=== PATIENT | female | born 1960 | race Caucasian/White ===

== ENCOUNTER 2016-08-26 18:36 | Emergency (ER) | payer SELFPAY ==
[2016-08-26 18:44] VITALS: BP 141/73; PULSE 93; RESP 18; TEMP 98.5; O2SAT 99
--- NOTE | 2016-08-26 18:56 | ED PDOC ---
Lower Extremity Pain/Injury Time Seen by Provider: 08/26/16 18:45 Chief Complaint (Nursing): Lower Extremity Problem/Injury Chief Complaint (Provider): Atraumatic left foot swelling History Per: Patient History/Exam Limitations: no limitations Onset/Duration Of Symptoms: Days (7 days) Current Symptoms Are (Timing): Still Present Additional Complaint(s): Sasha Bernabe, a 55 year old female, presents to the ED with atraumatic left foot swelling. The patient says she has been experiencing this for one week and it has progressively worsened. Denies numbness, tingling, fever and trauma. Past Medical History Reviewed: Historical Data, Nursing Documentation, Vital Signs Vital Signs: Last Vital Signs Temp 98.5 F 08/26/16 18:43 Pulse 93 H 08/26/16 18:43 Resp 18 08/26/16 18:43 BP 141/73 08/26/16 18:43 Pulse Ox 99 08/26/16 18:43 - Medical History PMH: No Chronic Diseases, HIV, HTN - Surgical History Surgical History: Appendectomy, Cholecystectomy - Family History Family History: States: Unknown Family Hx - Immunization History Hx Tetanus Toxoid Vaccination: No Hx Influenza Vaccination: No Hx Pneumococcal Vaccination: No - Home Medications Home Medications: Ambulatory Orders Medication Instructions Recorded traMADol [Ultram] 50 mg PO Q6H PRN #15 tab 11/18/14 Azithromycin [Z-Michael] 250 mg PO DAILY #6 tab 04/07/16 Naproxen [Naprosyn] 500 mg PO BID PRN #20 tablet 04/07/16 Meloxicam [Mobic] 7.5 mg PO DAILY PRN #30 tab 08/26/16 - Allergies Allergies/Adverse Reactions: Allergies Allergy/AdvReac Type Severity Reaction Status Date / Time No Known Allergies Allergy Verified 08/26/16 18:41 Review of Systems Constitutional: Positive for: Other (Denies numbness; tingling and trauma.). Negative for: Fever Musculoskeletal: Positive for: Other (Left foot swelling) Physical Exam - Reviewed Nursing Documentation Reviewed: Yes Vital Signs Reviewed: Yes - Physical Exam Appears: Positive for: Non-toxic, No Acute Distress Head Exam: Positive for: ATRAUMATIC, NORMOCEPHALIC Extremity: Positive for: Capillary Refill (Capillary refill 2 seconds.), Other ( Plantar surface of the left foot has a small mobile, tender, non fluctuate, non erythematous without skin integrity; Dorsalis Pedalis pulse 2+) Neurologic/Psych: Positive for: Alert, Oriented - ECG O2 Sat by Pulse Oximetry: 99 - Radiology X-Ray: Interpreted by Me (Foot x-ray) X-Ray Interpretation: No Acute Disease Medical Decision Making Medical Decision Makin:45 Initial Impression: 55 year old female presenting with atraumatic left leg pain Initial plan: * Foot left 3 views routine * reevaluation Scribe Attestation: Documented by Lucrecia Chaney, acting as a scribe for Jose Gaines PA-C., MD Scribe Attestation: All medical record entries made by the Scribe were at my direction and personally dictated by me. I have reviewed the chart and agree that the record accurately reflects my personal performance of the history, physical exam, medical decision making, and the department course for this patient. I have also personally directed, reviewed, and agree with the discharge instructions and disposition. Disposition - Clinical Impression Clinical Impression: Villanueva's neuroma - Patient ED Disposition Is Patient to be Admitted: No - Disposition Referrals: Mable Sanchez DPM [Staff Provider] - [facility] [Provider Group] Disposition: Routine/Home Disposition Time: 19:12 Condition: STABLE Additional Instructions: Follow up with Dr. Sanchez, nut culler, for further evaluation. Prescriptions: Meloxicam [Mobic] 7.5 mg PO DAILY PRN #30 tab PRN Reason: Pain, Mild (1-3) Instructions: Villanueva Neuroma (ED) Print Language: RUSSIAN
--- NOTE | 2016-08-26 22:24 | RAD ---
PROCEDURE: Left Foot Radiographs. HISTORY: pain COMPARISON: None available. FINDINGS: BONES: No acute displaced fracture. JOINTS: No dislocation. SOFT TISSUES: Soft tissue swelling. No evidence of radiopaque foreign body. OTHER FINDINGS: None. IMPRESSION: Soft tissue swelling. No acute displaced fracture, dislocation, or significant joint effusion identified. If symptoms persist, or if there is continued clinical concern, x-ray follow-up in 7-10 days should be considered.
== END 2016-08-26 19:33 | disposition home or self-care (01) ==
LOC: H.ER 18:36
DX: G57.62 Lesion of plantar nerve, left lower limb (principal)

== ENCOUNTER 2016-10-18 11:41 | Day surgery (SDC) | payer SELFPAY ==
[2016-10-12 17:42] VITALS: BMI 26.9
[2016-10-18] MEDS ORDERED: Lactated Ringer's 1,000 ML IV ONE (12:15)
[2016-10-18] MEDS ORDERED: Bupivacaine 0.5% 50 ML IJ ONE ×5 (13:02→15:44)
[2016-10-18] MEDS ORDERED: ceFAZolin 1 GM in Sodium Chloride 0.9% 100 ML IVPB ONE (13:02)
[2016-10-18] MEDS ORDERED: Lidocaine 1% Inj (20ml) IJ ONE ×2 (13:02→15:05)
--- NOTE | 2016-10-18 13:09 | CP.PCM.PN ---
Subjective - Date & Time of Evaluation Date of Evaluation: 10/18/16 Time of Evaluation: 13:05 - Subjective Subjective: 55 y/o female with PMHx of HTN seen at bedside in [facility] for painful left foot plantar fibroma surgery. Pt states that she has pain because of the fibroma. Pt states that she has been NPO since 6 pm yesterday. Pt denies of having any adverse reaction to anesthesia. Pt denies of any recent F/N/V/C/SOB. PMHx: HTN PSHx: Hysterectomy, Cholecystectomy, Appendectomy Allergies: N.K.D.A Objective - Vital Signs/Intake and Output Vital Signs (last 24 hours): Temp Pulse Resp BP Pulse Ox 98.3 F 75 20 138/77 99 10/18/16 12:03 10/18/16 12:06 10/18/16 12:03 10/18/16 12:03 10/18/16 12:03 - Medications Medications: Current Medications Bupivacaine HCl (Marcaine 0.5% 50 Ml) 50 ml IJ ONCE ONE Stop: 10/18/16 13:03 Cefazolin Sodium 1 gm/ Sodium (Chloride) 100 mls @ 100 mls/hr IVPB ONCE ONE Stop: 10/18/16 14:01 - Constitutional Appears: Well, Non-toxic, No Acute Distress - Extremities Exam Additional comments: Left foot focused exam: VASC: DP/PT pulses are palpable and 2/4, WIRE COMMUNICATIONS ENGINEER: < 3 sec to all digits, TG: warm to cool from proximal to distal, no pitting or non-pitting edema noted DERM: no interdigital maceration, no open lesions, no clinical suspicion of infection, no erythema NEURO: Protective sensation grossly intact ORTHO: palpable mass on the plantar medial arch of the left foot which is tender to touch - Neurological Exam Neurological Exam: Alert, Awake, Oriented x3 - Psychiatric Exam Psychiatric exam: Normal Affect, Normal Mood Assessment and Plan - Assessment and Plan (Free Text) Assessment: 55 y/o female seen at bedside in [facility] for painful left foot soft tissue removal Plan: Pt was seen and examined in [facility] Pt NPO status was confirmed All Pre-op testing and clearance was in the chart Pt has exhausted all conservative treatment at this time and is opting for surgical intervention Pt was explained procedure and post-operative course All pt's questions were answered to satisfaction No guarantees were made Pt understands all risks, benefits and complications of procedure Pt will follow-up with Dr. Partida
[2016-10-18] MEDS ORDERED: Sodium Chloride 0.9% 1,000 ML IV SCH (13:15)
--- NOTE | 2016-10-18 13:18 | CP.SDSHP ---
Same Day Surgery H & P - History Proposed Procedure: Excision of soft tissue mass on left foot Pre-Op Diagnosis: soft tissue mass on left foot - Allergies Allergies: Allergies No Known Allergies Allergy (Verified 08/26/16 18:41) - Physical Exam Vital Signs: Vital Signs 10/18/16 10/18/16 12:03 12:06 Temperature 98.3 F Pulse Rate 75 75 Respiratory 20 Rate Blood Pressure 138/77 O2 Sat by Pulse 99 Oximetry Mental Status: Alert & Oriented x3 - {Optional Preform as Required} Integument: WNL Ortho: Other - Impression Impression: Pt was seen and examined in [facility]. Pt NPO status was confirmed. All Pre-op testing and clearance was in the chart. Pt has exhausted all conservative treatment at this time and is opting for surgical intervention. Pt was explained procedure and post-operative course. All pt's questions were answered to satisfaction. No guarantees were made. Pt understands all risks, benefits and complications of procedure. Pt will follow-up with Dr. Partida - Date & Time Date: 10/18/16 Time: 13:17 Short Stay Discharge - Short Stay Discharge Admitting Diagnosis/Reason for Visit: M79.9 Disposition: HOME/ ROUTINE Referrals: Yoandy Partida MD [Staff Provider] - Additional Instructions (Diet, Activity): Patient in good/stable condition for discharge home. Pt to resume medications per medical reconciliation. Resume regular diet. Please keep dressing clean, dry, & intact to surgical site, use plastic bag over bandage for showering, wear post op shoe at all times when ambulating, call clinic if you see signs of infection (redness, swelling, malodor), please make an appointment to see Dr. Partida in office/clinic within 1 week for post-op check. Progress Note/Discharge Note with Instructions: - Patient evaluated bedside in recovery s/p surgical procedure. - After surgical procedure patient in NAD - (+) Void, (+) Appetite - Capillary refill time <3s and NVSI intact. - Patient denies complaints at this time - Post operative instructions and plan of care explained to patient at length. - Pt. acknowledges understanding. - Patient stable for DC per podiatric surgery
[2016-10-18] MEDS ORDERED: Lidocaine 1% Inj (20ml) ONE (14:29)
[2016-10-18] MEDS ORDERED: Bupivacaine 0.5% Inj(30mL) ONE (14:29)
[2016-10-18] MEDS ORDERED: Propofol 10 mg/ml Inj (20 ML) ONE ×2 (14:35→14:56)
[2016-10-18] MEDS ORDERED: Midazolam 2 MG/2 ML VIAL ONE (14:36)
--- NOTE | 2016-10-18 15:51 | PCM.SURG1 ---
Surgeon's Initial Post Op Note - Surgeon's Notes Surgeon: Dr. Partida Hydraulic Dredge Operator: Dr. Luis Monreal Type of Anesthesia: IV Sedation Anesthesia Administered By: Dr. Chery Pre-Operative Diagnosis: Left foot soft tissue mass Operative Findings: see dictation. M: 2-0 vicryl, 3-0 prolene Post-Operative Diagnosis: same Operation Performed: Excision of left foot soft tissue mass Specimen/Specimens Removed: Left foot plantar fascial fibroma Estimated Blood Loss: EBL {In ML}: 2 Blood Products Given: N/A Drains Used: No Drains Post-Op Condition: Good Date of Surgery/Procedure: 10/18/16 Time of Surgery/Procedure: 15:51
[2016-10-18] MEDS ORDERED: Oxycodone/Acetaminophen 5/325 mg Tab PO PRN ×2 (15:53)
[2016-10-18] MEDS ORDERED: HYDROmorphone 0.5 mg/0.5 ml ISec IVP PRN (15:54)
[2016-10-18] MEDS ORDERED: Lactated Ringer's 1,000 ML IV SCH (16:00)
[2016-10-18 16:38] VITALS: RESP 18
[2016-10-18 18:28] VITALS: BP 129/79; PULSE 66; TEMP 98; O2SAT 98
--- NOTE | 2016-10-19 11:29 | PCM.OP ---
Operative Report - Operative Report Date of Surgery/Procedure: 10/18/16 Time of Surgery/Procedure: 14:30 Surgeon: Dr. Partida Natural Gas Basis Trader: Dr. Jermaine Krishnamurthy PGY-2; Dr. Shayna Smith PGY-1 Anesthesia/Sedation: IV sedation + local Pre-Operative Diagnosis: painful soft tissue mass left foot Post-Operative Diagnosis: painful soft tissue mass left foot Indication for Surgery: The patient is a 55year-old female pt with the above diagnoses. Of note, patient has had a painful soft tissue growth of the left foot plantar arch for the past 2-3 months.The patient has exhausted conservative treatment at this time and now requests surgical intervention. The patient signed the consent after careful explanation of risks, benefits, complication and alternatives for surgical procedure. No guarantees were given nor implied. 1 gram of ancef IV was given to the pt hour prior to the procedure. NPO status was confirmed prior to taking pt to the OR. Operative Findings: The patient was brought to the operating room and placed on the operating room table in supine position. A well-padded pneumatic ankle tourniquet was placed to the patient's left ankle in a supramalleolar position. After induction of IV sedation, the patient received a total of 20 mL of 1:1 mixture of 0.5% Marcaine and 1% lidocaine plain in local block fashion to the left foot. Once local anesthesia was achieved, the foot was then prepped and draped in usual sterile manner. Esmarch was utilized to exsanguinate the patient's left foot. Pneumatic ankle tourniquet was then inflated to 250 mmHg and procedure began. Attention was then direction to the medial aspect of the plantar arch where a nodular mass was noted measuring approximately 4.0x2.0 cm deep to skin. Using a number #15 blade a curvilinear incision was made directly over the palpable mass measuring 6cm in length. Using blunt dissection, the dissection was continued down to deep subcutaneous tissue layer. It should be noted that care was taken to identify and retract all vital neurovascular structures. All bleeders were cauterized and ligated as. necessary. Upon dissection a nodular denisity within the medial band of the plantar fascia was encountered. Carefully, using blunt dissection, the thickened area of planatar fascia was excised,taking care to preserve the abductor hallucis muscle belly integrity deep to the plantar fascia, and the mass was then passed from the operative field and sent to pathology. The. wound was irrigated with copious amounts of sterile normal saline. The subcutaneous tissue was then reapproximated using a #3-0 Vicryl in a simple stitch manner. The skin edges were then reapproximated using #3-0 prolene in simple stitch and box retention suture technique. Procedure/Operation Description: excision of painful soft tissue mass left foot Estimated Blood Loss: 2 Complications: none Discharge & Condition: The patient tolerated the anesthesia and procedure well and was escorted to the recovery room with vital signs stable and neurovascular status intact to the left foot. This patient will be strictly NWB and will follow up with Dr. Partida in the clinic within 1 week.
== END 2016-10-18 18:43 | disposition home or self-care (01) ==
LOC: H.OPSURG 11:41
PROVIDERS: ATTEND Podiatrist
DX: D21.22 Benign neoplasm of connective and other soft tissue of left lower limb, including hip (principal); I10 Essential (primary) hypertension

== ENCOUNTER 2016-11-11 09:03 | Emergency (ER) | payer OTHER ==
[2016-11-11 09:03] VITALS: BMI 26.9
[2016-11-11 09:13] VITALS: BP 121/66; PULSE 87; RESP 17; TEMP 98.6
[2016-11-11 09:19] VITALS: O2SAT 98
--- NOTE | 2016-11-11 09:27 | ED PDOC ---
Lower Extremity Pain/Injury Time Seen by Provider: 11/11/16 09:16 Chief Complaint (Nursing): Lower Extremity Problem/Injury Chief Complaint (Provider): Foot pain History Per: Patient History/Exam Limitations: no limitations Onset/Duration Of Symptoms: Days (Today) Current Symptoms Are (Timing): Still Present Additional History Per: Patient Additional Complaint(s): Pt. with foot pain in site of surgery since the surgery, but more for 1 week. No numbness, tingles, weakness, calf pain, fever. No dyspnea. Pt. with surgery on bottom of foot. Seen by scraper operator 1 week after sugery and allowed pt. to ambulate. Past Medical History Reviewed: Nursing Documentation, Vital Signs Vital Signs: Last Vital Signs Temp 98.6 F 11/11/16 09:12 Pulse 87 11/11/16 09:12 Resp 17 11/11/16 09:12 BP 121/66 11/11/16 09:12 Pulse Ox 98 11/11/16 09:17 - Medical History PMH: HIV, HTN Denies: Chronic Kidney Disease - Surgical History Surgical History: Appendectomy, Cholecystectomy Other surgeries: foot surgery - Family History Family History: States: Unknown Family Hx - Social History Alcohol: None Drugs: Denies - Immunization History Hx Tetanus Toxoid Vaccination: No Hx Influenza Vaccination: No Hx Pneumococcal Vaccination: No - Home Medications Home Medications: Ambulatory Orders Medication Instructions Recorded Ibuprofen [Motrin Tab] 800 mg PO DAILY PRN 10/12/16 Abacavir/Dolutegravir/Lamivudi 1 tab PO DAILY 10/18/16 [Triumeq Tablet] Cephalexin [Keflex] 500 mg PO TID 10/18/16 Hydrochlorothiazide [Microzide] 25 mg PO DAILY 10/18/16 oxyCODONE/Acetaminophen [Percocet 5 - 325 mg PO Q6 PRN 10/18/16 5/325 mg Tab] Amoxicillin/Clavulanate [Augmentin 1 tab PO BID 7 Days 11/11/16 500 MG-125 MG] - Allergies Allergies/Adverse Reactions: Allergies Allergy/AdvReac Type Severity Reaction Status Date / Time No Known Allergies Allergy Verified 11/11/16 09:16 Review of Systems ROS Statement: Except As Marked, All Systems Reviewed And Found Negative Musculoskeletal: Positive for: Foot Pain Physical Exam - Reviewed Nursing Documentation Reviewed: Yes Vital Signs Reviewed: Yes - Physical Exam Appears: Positive for: Non-toxic, No Acute Distress Head Exam: Positive for: ATRAUMATIC, NORMAL INSPECTION, NORMOCEPHALIC Cardiovascular/Chest: Positive for: Regular Rate, Rhythm Respiratory: Positive for: CNT, Normal Breath Sounds Pulses-Dorsalis Pedis (L): 2+ Pulses-Post. Tibialis (L): 2+ Back: Positive for: Normal Inspection. Negative for: L CVA Tenderness, R CVA Tenderness Extremity: Positive for: Normal ROM, Tenderness (R plantar mid foot with wound tender with ?trace barillas dc. Mild erythema, no fluctuance.). Negative for: Calf Tenderness, Deformity Neurologic/Psych: Positive for: Alert, Oriented - Laboratory Results Result Diagrams: 11/11/16 11:20 11/11/16 11:20 Interpretation Of Abn Labs: no acute - ECG O2 Sat by Pulse Oximetry: 98 Pulse Ox Interpretation: Normal - Progress ED Course And Treament: 1211: Stable. Podiatry saw pt. Wanted blood work and x-rays. They took cx. 1241: Stable. AAOx3. Pain free. Podiatry wrapped foot. Wants pt. to be dc with augmentin. Fu in 1 week. Disposition - Clinical Impression Clinical Impression: Wound infection - Patient ED Disposition Is Patient to be Admitted: No Counseled Patient/Family Regarding: Studies Performed, Diagnosis, Need For Followup, Rx Given - Disposition Referrals: Yoandy Partida MD [Staff Provider] - 11/17/16 Disposition: Routine/Home Disposition Time: 12:42 Condition: STABLE Additional Instructions: Return if not better in 3 days. Prescriptions: Amoxicillin/Clavulanate [Augmentin 500 MG-125 MG] 1 tab PO BID 7 Days Instructions: Wound Infection (ED) Forms: [facility] [facility] (French)
[2016-11-11] MEDS ORDERED: Sodium Chloride 0.9% 500 ML IV STA (09:51)
--- NOTE | 2016-11-11 10:51 | RAD ---
PROCEDURE: Left Foot Radiographs. HISTORY: pain COMPARISON: 08/26/16. FINDINGS: BONES: Normal. No fracture. JOINTS: Normal. SOFT TISSUES: Normal. OTHER FINDINGS: None. IMPRESSION: Normal left foot radiographs.
[2016-11-11 11:36] LABS: BASO % 0.3 % (0.0-2.0); EOS # 0.1 K/uL (0.0-0.7); EOS % 0.7 % (0.0-4.0); HEMOGLOBIN 13.8 g/dL (12.0-16.0); LYMPH # 3.1 K/uL (1.0-4.3); LYMPH % 30.3 % (20.0-40.0); MEAN CELL VOLUME 94.1 fl (81.0-99.0); MEAN CORPUSCULAR HEMOGLOBIN 32.7 pg (27.0-31.0); MEAN CORPUSCULAR HGB CONC 34.8 g/dL (33.0-37.0); MEAN PLATELET VOLUME 9.3 fl (7.2-11.7); MONO # 0.9 K/uL (0.0-0.8); MONO % 8.3 % (0.0-10.0); NEUT # 6.2 K/uL (1.8-7.0); NEUT % 60.4 % (50.0-75.0); NRBC % 0.1 % (0.0-0.0); RBC 4.21 Mil/uL (3.80-5.20); RED CELL DISTRIBUTION WIDTH 12.9 % (11.5-14.5); WHITE BLOOD COUNT 10.3 K/uL (4.8-10.8)
[2016-11-11 11:42] LABS: BLOOD UREA NITROGEN 18 mg/dl (7-17); CALCIUM 9.5 mg/dL (8.4-10.2); GFR AFRICAN-AMERICAN > 60; GFR NON-AFRICAN AMERICAN > 60
--- NOTE | 2016-11-11 15:25 | CP.PCM.CON ---
History of Present Illness - History of Present Illness History of Present Illness: Patient is a 55 year old female with PMHx of HIV and HTN who presents to the ED today complaining of pain on the bottom of her left foot where she had a surgery performed roughly three weeks ago by Dr. Partida to remove a soft tissue mass. Patient states that she has had pain in the area ever since the surgery but that over the last few days her pain has increased greatly. Patient has been applying a cream to the area but can not recall the name of the cream at this time. Patient has also been keeping her dressing C/D/I and has been walking in a surgical shoe as instructed. Patient denies any further pedal complaints at this time. Patient denies N/V/F/C/CP/SOB Review of Systems - Review of Systems Review of Systems: ROS unremarkable outside of HPI Past Patient History - Past Medical History & Family History Past Medical History?: Yes - Past Social History Alcohol: None Drugs: Denies - CARDIAC Hx Hypertension: Yes - PULMONARY Hx Respiratory Disorders: No - NEUROLOGICAL Hx Neurological Disorder: No - HEENT Hx HEENT Problems: No - RENAL Hx Chronic Kidney Disease: No - ENDOCRINE/METABOLIC Hx Endocrine Disorders: No - HEMATOLOGICAL/ONCOLOGICAL Hx Human Immunodeficiency Virus (HIV): Yes - INTEGUMENTARY Hx Dermatological Problems: No - MUSCULOSKELETAL/RHEUMATOLOGICAL Hx Musculoskeletal Disorders: No - GASTROINTESTINAL Hx Gastrointestinal Disorders: No - GENITOURINARY/GYNECOLOGICAL Hx Genitourinary Disorders: No - PSYCHIATRIC Hx Psychophysiologic Disorder: No Hx Substance Use: No - SURGICAL HISTORY Hx Appendectomy: Yes Hx Cholecystectomy: Yes - ANESTHESIA Hx Anesthesia: Yes Hx Anesthesia Reactions: No Hx Malignant Hyperthermia: No Meds Home Medications: Home Medication List Medication Instructions Recorded Confirmed Type Amoxicillin/Clavulanate [Augmentin 1 tab PO BID 7 Days 11/11/16 Rx 500 MG-125 MG] Allergies/Adverse Reactions: Allergies Allergy/AdvReac Type Severity Reaction Status Date / Time No Known Allergies Allergy Verified 11/11/16 09:16 Physical Exam - Constitutional Appears: Well, Non-toxic, No Acute Distress - Extremities Exam Additional comments: LLE focused exam Vasc: DP/PT pulses fully palpable 2/4 b/l. CFT < 3 seconds to digits 1-5 b/l. Skin temperature warm to warm from proximal to distal Neuro: epicritic and protective sensation grossly intact b/l Derm: Incision site noted to plantar aspect of left foot with <1cc purulent drainage noted. Mild erythematous border appreciated and tissue at surgical site is necrotic/fibrotic. No malodor noted at this time. Otherwise no open lesions, wounds, maceration, xerosis, or abnormal pigmentation noted b/l MSK: POP to surgical site - Neurological Exam Neurological exam: Alert, Oriented x3 - Psychiatric Exam Psychiatric exam: Normal Affect, Normal Mood Results - Vital Signs Recent Vital Signs: Last Vital Signs Temp 98.6 F 11/11/16 09:12 Pulse 87 11/11/16 09:12 Resp 17 11/11/16 09:12 BP 121/66 11/11/16 09:12 Pulse Ox 98 11/11/16 12:43 - Labs Result Diagrams: 11/11/16 11:20 11/11/16 11:20 Labs: Laboratory Results - last 24 hr 11/11/16 11/11/16 11:20 11:20 WBC 10.3 RBC 4.21 Hgb 13.8 D Hct 39.6 MCV 94.1 MCH 32.7 H MCHC 34.8 RDW 12.9 Plt Count 254 MPV 9.3 Neut % (Auto) 60.4 Lymph % (Auto) 30.3 Harding % (Auto) 8.3 Eos % (Auto) 0.7 Baso % (Auto) 0.3 Neut # 6.2 Lymph # 3.1 Harding # 0.9 H Eos # 0.1 Baso # 0.0 Sodium 140 Potassium 4.1 Chloride 103 Carbon Dioxide 28 Anion Gap 12 BUN 18 H Creatinine 0.7 Est GFR ( Amer) > 60 Est GFR (Non-Af Amer) > 60 Random Glucose 103 Calcium 9.5 Assessment & Plan - Assessment and Plan (Free Text) Assessment: 55 year old female with PMH HIV, HTN presents to ED with mildly infected surgical site roughly 3 weeks s/p removal of plantar fibroma from left foot Plan: Patient seen and evaluated Charts, labs and vitals reviewed; patient afebrile, WBC 10.[address] Dennison Xrays taken and assessed with no evidence of soft tissue abscess, emphysema or osteomyelitic changes to underlying bone noted Wound cultures taken with results pending Patient surgical site copiously cleansed with normal, sterile saline Site dressed with 4x4 gauze, kirlix, MIMI Patient instructed to keep dressing clean, dry and intact Patient has a followup appointment with Dr. Partida on Wednesday 11/15 in clinic Patient instructed to return to ED at any time if she feels that situation is worsening or begins feeling N/V/F/C/CP/SOB - Date & Time Date: 11/11/16 Time: 09:35
== END 2016-11-11 12:50 | disposition home or self-care (01) ==
LOC: H.ER 09:03
DX: T81.4XXA Infection following a procedure, initial encounter (principal); I10 Essential (primary) hypertension; B20 Human immunodeficiency virus [HIV] disease

== ENCOUNTER 2017-03-13 09:22 | Day surgery (SDC) | payer SELFPAY ==
[2017-03-13] MEDS ORDERED: Lactated Ringer's 1,000 ML IV ONE (10:53)
[2017-03-13] MEDS ORDERED: Lidocaine 2% MPF (5 ml) Inj ONE (13:25)
[2017-03-13] MEDS ORDERED: Propofol 10 mg/ml Inj (20 ML) ONE (13:25)
[2017-03-13 14:06] VITALS: TEMP 97.5
[2017-03-13 14:17] VITALS: BP 131/87; PULSE 69; RESP 15; O2SAT 100
== END 2017-03-13 14:28 | disposition home or self-care (01) ==
LOC: H.ENDO 09:22
PROVIDERS: ATTEND Internal Medicine Gastroenterology
DX: Z12.11 Encounter for screening for malignant neoplasm of colon (principal); I10 Essential (primary) hypertension; D12.0 Benign neoplasm of cecum; K64.0 First degree hemorrhoids
CPT/HCPCS: 45385; 88305; J2704; J7120

== ENCOUNTER 2017-07-18 12:55 | Emergency (ER) | payer SELFPAY ==
[2017-07-18 12:55] VITALS: BMI 26.9
[2017-07-18 13:11] VITALS: BP 129/80; PULSE 72; RESP 16; TEMP 98; O2SAT 98
--- NOTE | 2017-07-18 14:08 | ED PDOC ---
HPI: General Adult Time Seen by Provider: 07/18/17 13:00 Chief Complaint (Nursing): Breast Problem Chief Complaint (Provider): Rib pain History Per: Patient History/Exam Limitations: no limitations Onset/Duration Of Symptoms: Days (x6) Current Symptoms Are (Timing): Still Present Additional Complaint(s): Sasha Bernabe is a 56 year old female, with a past medical history of HIV, who presents to the emergency department complaining of right rib pain onset for x6 days. Patient reports pain is worsens with movement and was worst last night because of the way she was sleeping. She took ibuprofen x2 days ago with minimal relief. She denies any fever, chills, cough, shortness of breath, nausea , vomit or diarrhea. No further medical complaints. PMD: None provided. Past Medical History Reviewed: Historical Data, Nursing Documentation, Vital Signs Vital Signs: Last Vital Signs Temp 98.0 F 07/18/17 13:09 Pulse 72 07/18/17 13:09 Resp 16 07/18/17 13:09 BP 129/80 07/18/17 13:09 Pulse Ox 98 07/18/17 14:12 - Medical History PMH: HIV, HTN Denies: Chronic Kidney Disease - Surgical History Surgical History: Appendectomy, Cholecystectomy Other surgeries: foot surgery - Family History Family History: States: Unknown Family Hx - Social History Current smoker - smoking cessation education provided: No Alcohol: None Drugs: Denies - Immunization History Hx Tetanus Toxoid Vaccination: No Hx Influenza Vaccination: No Hx Pneumococcal Vaccination: No - Home Medications Home Medications: Ambulatory Orders Medication Instructions Recorded Abacavir/Dolutegravir/Lamivudi 1 tab PO DAILY 10/18/16 [Triumeq Tablet] Hydrochlorothiazide [Microzide] 25 mg PO DAILY 10/18/16 - Allergies Allergies/Adverse Reactions: Allergies Allergy/AdvReac Type Severity Reaction Status Date / Time No Known Allergies Allergy Verified 07/18/17 13:09 Review of Systems ROS Statement: Except As Marked, All Systems Reviewed And Found Negative Constitutional: Negative for: Fever, Chills Respiratory: Negative for: Cough, Shortness of Breath Gastrointestinal: Negative for: Nausea, Vomiting, Diarrhea Musculoskeletal: Positive for: Other (Right sided rib pain) Physical Exam - Reviewed Nursing Documentation Reviewed: Yes Vital Signs Reviewed: Yes - Physical Exam Appears: Positive for: Well, Non-toxic, No Acute Distress Head Exam: Positive for: ATRAUMATIC, NORMAL INSPECTION, NORMOCEPHALIC Skin: Positive for: Normal Color, Warm, Dry. Negative for: Rash Eye Exam: Positive for: Normal appearance, EOMI, PERRL Neck: Positive for: Painless ROM, Supple Cardiovascular/Chest: Positive for: Regular Rate, Rhythm. Negative for: Murmur Respiratory: Positive for: Normal Breath Sounds (Clear to auscultation). Negative for: Respiratory Distress Gastrointestinal/Abdominal: Positive for: Normal Exam, Soft. Negative for: Tenderness, Guarding, Rebound Back: Positive for: Normal Inspection. Negative for: L CVA Tenderness, R CVA Tenderness, Vertebral Tenderness Extremity: Positive for: Normal ROM (upper and lower extremities). Negative for : Tenderness, Deformity, Swelling Neurologic/Psych: Positive for: Alert, Oriented. Negative for: Motor/Sensory Deficits - Laboratory Results Result Diagrams: 07/18/17 14:10 07/18/17 14:10 - ECG O2 Sat by Pulse Oximetry: 98 (RA) Pulse Ox Interpretation: Normal Medical Decision Making Medical Decision Making: Initial Impression: Rib pain Initial Plan: --CMP --Troponin I --CBC w/ differential --Chest two views (PA/LAT) [RAD] --Toradol 30 mg IV --Reevaluation workup appears negaive pt feels better stable for dc and outpt follow up pt agreable ~ Scribe Attestation: Documented by Inderjit Norwood, acting as a scribe for Ion Arambula MD. Provider Scribe Attestation: All medical record entries made by the Scribe were at my direction and personally dictated by me. I have reviewed the chart and agree that the record accurately reflects my personal performance of the history, physical exam, medical decision making, and the department course for this patient. I have also personally directed, reviewed, and agree with the discharge instructions and disposition. Disposition - Clinical Impression Clinical Impression: Muscular pain - Patient ED Disposition Is Patient to be Admitted: No Counseled Patient/Family Regarding: Studies Performed, Diagnosis, Need For Followup - Disposition Disposition: Routine/Home Disposition Time: 15:00 Condition: IMPROVED Additional Instructions: follow up with your primary doctor in 1-2 days take motrin for pain return to the ED with any worsening or concerning symptoms Instructions: Muscle and Bone Pain (DC) Forms: [employer] (Romansh) Print Language: MAORI
[2017-07-18 14:35] LABS: BASO % 0.3 % (0.0-2.0); EOS # 0.1 K/uL (0.0-0.7); EOS % 1.4 % (0.0-4.0); HEMOGLOBIN 14.1 g/dL (12.0-16.0); MEAN CELL VOLUME 94.6 fl (81.0-99.0); MEAN CORPUSCULAR HEMOGLOBIN 33.7 pg (27.0-31.0); MEAN CORPUSCULAR HGB CONC 35.6 g/dL (33.0-37.0); MONO # 0.8 K/uL (0.0-0.8); MONO % 7.9 % (0.0-10.0); NEUT # 5.6 K/uL (1.8-7.0); NEUT % 52.4 % (50.0-75.0); NRBC % 0.1 % (0.0-0.0); RBC 4.19 Mil/uL (3.80-5.20); RED CELL DISTRIBUTION WIDTH 13.2 % (11.5-14.5); WHITE BLOOD COUNT 10.6 K/uL (4.8-10.8)
[2017-07-18 14:36] LABS: GFR AFRICAN-AMERICAN > 60; GFR NON-AFRICAN AMERICAN > 60
[2017-07-18 14:49] LABS: ALBUMIN 4.3 g/dL (3.5-5.0); ALT/SGPT 31 U/L (9-52); AST/SGOT 44 U/L (14-36); BLOOD UREA NITROGEN 19 mg/dl (7-17)
--- NOTE | 2017-07-18 17:57 | RAD ---
HISTORY: COMPARISON: 04/07/2016. TECHNIQUE: Chest PA and lateral FINDINGS: LINES AND TUBES: None. LUNG AND PLEURA: The lungs are well inflated and clear. HEART AND MEDIASTINUM: The heart is not enlarged. The hilar and mediastinal contours are within normal limits. SKELETAL STRUCTURES: The bony structures are within normal limits for the patient's age. VISUALIZED UPPER ABDOMEN: Normal. OTHER FINDINGS: None. IMPRESSION: No active pulmonary disease. No acute findings
== END 2017-07-18 16:30 | disposition home or self-care (01) ==
LOC: H.ER 12:55
DX: M79.1 Myalgia (principal); R07.81 Pleurodynia; I10 Essential (primary) hypertension; Z21 Asymptomatic human immunodeficiency virus [HIV] infection status
CPT/HCPCS: 71046; 80053; 84484; 85025; 99283; J1885